=== PATIENT | male | born 1945 | race Caucasian/White ===

== ENCOUNTER 2016-07-22 14:40 | Emergency (ER) | payer MEDICARE, OTHER ==
[~2016-07-22] VITALS: Ht 177.8 cm; Wt 85.0 kg
[2016-07-22 14:51] VITALS: BP 141/86; PULSE 97; RESP 20; TEMP 98.4; O2SAT 94
[2016-07-22] MEDS ORDERED: ASPI81CH37 CHEW (15:11)
[2016-07-22] MEDS ORDERED: OMEP20TA PO (15:11)
[2016-07-22] MEDS ORDERED: methylPREDNISolone SOD SUCC 125 MG/2 ML VIAL IVP ONE (15:15)
[2016-07-22] MEDS ORDERED: SODIUM CHLORIDE 0.9% FLUSH 10 ML FLUSH IVF PRN (15:15)
--- NOTE | 2016-07-22 15:16 | PD ---
HPI Chief Complaint: Respiratory Symptoms Time Seen by Provider: 15:03 Travel History International Travel<30 days: No Contact w/Intl Traveler<30days: No Traveled to known affect area: No History of Present Illness HPI Patient is a 71-year-old male with approximately 60-90 pack years of smoking history but no previously documented COPD per his report here with complaint of shortness of breath. Patient states that he is chronically short of breath with a "smoker's cough" but has gotten worse over the Last couple of days with increasing chest congestion, wheezing, sputum production. He notes he short of breath with exertion and with lying flat. Denies any peripheral edema, history of heart failure. No associated chest pain. PFSH Past Medical History COPD: Yes Diminished Hearing: Yes GERD: Yes Immunizations Current: Yes Tetanus Vaccination: < 5 Years Influenza Vaccination: Yes ?: Not Past Surgical History Other Surgery: Yes (collapsed lung skin grafts leg) Social History Alcohol Use: Yes (6 pk week) Tobacco Use: Yes (1 pk) Substance Use: No Allergies-Medications (Allergen,Severity, Reaction): Coded Allergies: No Known Allergies (Unverified , 07/22/16) Reported Meds & Prescriptions Reported Meds & Active Scripts Active Ventolin Hfa 18 GM Inh (Albuterol Sulfate) 90 Mcg/Act Aer 2 Puff INH Q4H PRN Zithromax Z-Tony (Azithromycin) 250 Mg Dspk 250 Mg PO DIRECTED 500 MG (2 tabs) day 1, then 1 tab days 2-5. Prednisone 20 Mg Tab 40 Mg PO DAILY 5 Days Take 40 mg (2 tablets) daily for 5 days Reported Aspirin Low Dose (Aspirin) 81 Mg Chew 81 Mg CHEW DAILY Omeprazole 20 Mg Tab 20 Mg PO DAILY Review of Systems Except as stated in HPI: all other systems reviewed are Neg Physical Exam Narrative GENERAL: Elderly male in no acute distress SKIN: Focused skin assessment warm/dry. HEAD: Normocephalic. EYES: No scleral icterus. No injection or drainage. ENT: Mucous membranes pink and moist. NECK: Supple CARDIOVASCULAR: Regular rate and rhythm. No murmur appreciated. RESPIRATORY: No accessory muscle use. Expiratory wheezing throughout GASTROINTESTINAL: Abdomen soft, non-tender, nondistended. Obese MUSCULOSKELETAL: No obvious deformities. No edema. NEUROLOGICAL: Awake and alert. Motor grossly within normal limits. Normal speech. PSYCHIATRIC: Appropriate mood and affect; insight and judgment normal. Data Data Last Documented VS Vital Signs Date Time Temp Pulse Resp B/P Pulse Ox O2 Delivery O2 Flow Rate FiO2 07/22/16 15:25 95 21 07/22/16 15:20 20 Room Air 07/22/16 14:51 98.4 97 141/86 Orders Complete Blood Count With Diff (07/22/16 15:08) Basic Metabolic Panel (Bmp) (07/22/16 15:08) Iv Access Insert/Monitor (07/22/16 15:08) Electrocardiogram (07/22/16 15:08) Ecg Monitoring (07/22/16 15:08) Oximetry (07/22/16 15:08) Chest, Single Ap (07/22/16 15:08) Sodium Chloride 0.9% Flush (Ns Flush) (07/22/16 15:15) Methylprednisolone So Succ Inj (Solumedr (07/22/16 15:15) Albuterol-Ipratropium Neb (Duoneb Neb) (07/22/16 15:15) Labs Laboratory Tests Test 07/22/16 15:15 White Blood Count 8.1 TH/MM3 Red Blood Count 5.06 MIL/MM3 Hemoglobin 15.3 GM/DL Hematocrit 46.7 % Mean Corpuscular Volume 92.3 FL Mean Corpuscular Hemoglobin 30.3 PG Mean Corpuscular Hemoglobin 32.9 % Concent Red Cell Distribution Width 13.0 % Platelet Count 168 TH/MM3 Mean Platelet Volume 8.6 FL Neutrophils (%) (Auto) 81.4 % Lymphocytes (%) (Auto) 3.7 % Monocytes (%) (Auto) 12.4 % Eosinophils (%) (Auto) 0.8 % Basophils (%) (Auto) 1.7 % Neutrophils # (Auto) 6.6 TH/MM3 Lymphocytes # (Auto) 0.3 TH/MM3 Monocytes # (Auto) 1.0 TH/MM3 Eosinophils # (Auto) 0.1 TH/MM3 Basophils # (Auto) 0.1 TH/MM3 CBC Comment DIFF FINAL Differential Comment Sodium Level 141 MEQ/L Potassium Level 3.6 MEQ/L Chloride Level 102 MEQ/L Carbon Dioxide Level 28.7 MEQ/L Anion Gap 10 MEQ/L Blood Urea Nitrogen 10 MG/DL Creatinine 0.85 MG/DL Estimat Glomerular Filtration 89 ML/MIN Rate Random Glucose 102 MG/DL Calcium Level 8.4 MG/DL [facility] Medical Decision Making Medical Screen Exam Complete: Yes Emergency Medical Condition: Yes Medical Record Reviewed: Yes Differential Diagnosis 71-year-old male with 60-90 pack years of smoking with increase of his chronic cough, shortness of breath over the last several days with increasing sputum production, more shortness of breath on laying flat. Differential includes COPD , COPD exacerbation, CHF, pneumonia and less likely symptomatic anemia, electrolyte abnormality or arrhythmia, ACS. Narrative Course Patient placed on monitor, IV established and blood obtained. A twelve-lead EKG shows sinus rhythm. Q waves in V1 and V2 but no notable ST abnormalities and normal intervals. Portal chest x-ray obtained that by my read shows no acute abnormalities. Patient given 125 mg Solu-Medrol, DuoNeb 3. CBC, BMP unremarkable. Patient felt improved and will be discharged to home with steroids, antibiotics and MDI as needed. Diagnosis Primary Impression: COPD exacerbation Additional Impression: Tobacco abuse Referrals: Primary Care Physician as needed Patient Instructions: COPD (Chronic Obstructive Pulmonary Disease) (ED), General Instructions Additional Instructions: Finished steroids and antibiotics as prescribed. Albuterol as needed for cough , wheezing, shortness of breath. Quit smoking tobacco as discussed. Follow-up with primary care provider symptoms persist and return to the ER for the warning signs discussed. Med/Other Pt SpecificInfo: Prescription(s) given Scripts Albuterol 18 GM Inh (Ventolin Hfa 18 GM Inh)90 Mcg/Act Aer2 Puff INH Q4H PRN ( SHORTNESS OF BREATH) #1 INHALER Ref 0 Prov:Cassie Matthew MD 07/22/16 Azithromycin (Zithromax Z-Tony)250 Mg [id number] Mg PO DIRECTED #1 DSPK Ref 0 500 MG (2 tabs) day 1, then 1 tab days 2-5. Prov:Cassie Matthew MD 07/22/16 Prednisone 20 Mg Tab40 Mg PO DAILY 5 Days Ref 0 Take 40 mg (2 tablets) daily for 5 days Prov:Cassie Matthew MD 07/22/16 Disposition: 01 DISCHARGE HOME Condition: Stable Cassie Matthew MD Jul 22, 2016 15:16
[2016-07-22 15:20] VITALS: RESP 20; O2SAT 94
[2016-07-22] MEDS: RESP: ALBUTEROL 2.5 MG/IPRATROPIUM 0.5 MG NEB (SCH) INH ×2 (15:20→15:21)
[2016-07-22 15:23] LABS: AUTOMATED NEUTROPHIL # 6.6 TH/MM3 (1.8-7.7); BASOPHIL # 0.1 TH/MM3 (0-0.2); BASOPHIL % 1.7 % (0.0-2.0); EOSINOPHIL # 0.1 TH/MM3 (0-0.4); EOSINOPHIL % 0.8 % (0.0-4.0); HEMATOCRIT 46.7 % (39.0-51.0); LYMPH % 3.7 % (9.0-44.0); LYMPHOCYTE # 0.3 TH/MM3 (1.0-4.8); MEAN CELL VOLUME 92.3 FL (80.0-100.0); MEAN CORPUSCULAR HEMOGLOBIN 30.3 PG (27.0-34.0); MEAN CORPUSCULAR HGB CONC 32.9 % (32.0-36.0); MONO % 12.4 % (0.0-8.0); NEUT % 81.4 % (16.0-70.0); PLATELET COUNT 168 TH/MM3 (150-450); RED BLOOD COUNT 5.06 MIL/MM3 (4.50-5.90); WHITE BLOOD COUNT 8.1 TH/MM3 (4.0-11.0)
[2016-07-22 15:24] LABS: HEMO FLAGS DIFF FINAL
[2016-07-22 15:25] VITALS: O2SAT 95
[2016-07-22 15:33] LABS: POTASSIUM 3.6 MEQ/L (3.5-5.1)
[2016-07-22 15:36] LABS: BICARBONATE 28.7 MEQ/L (21.0-32.0)
[2016-07-22] MEDS ORDERED: VENTAER INH (15:36)
[2016-07-22] MEDS ORDERED: PRED20 PO (15:36)
[2016-07-22] MEDS ORDERED: ZITHTAB PO (15:36)
--- NOTE | 2016-07-22 15:43 | RADHPO ---
EXAM DATE/TIME: 07/22/2016 15:12 [facility] COMPARISON: No previous studies available for comparison. INDICATIONS : Shortness of breath for three days. MEDICAL HISTORY : Chronic obstructive pulmonary disease. SURGICAL HISTORY : None. ENCOUNTER: Initial ACUITY: 3 days PAIN SCORE: 4/10 LOCATION: Bilateral chest FINDINGS: There is underlying emphysema with bullous changes at especially at the right apex. Scattered parench ymal scarring present. No consolidation or effusion. Heart size normal. Atherosclerotic and tortuous aorta. CONCLUSION: 1. Bullous emphysema right lung apex. Scattered parenchymal scarring. No effusion. Henrik Drew MD on July 22, 2016 at 15:40 Board Certified Radiologist. This report was verified electronically.
[2016-07-22 15:59] VITALS: BP 162/79
--- NOTE | 2016-07-23 15:07 | EKG ---
Date Performed: 07/22/2016 Time Performed: 15:12:58 PTAGE: 71 years EKG: Sinus rhythm Poor initial anterior forces, possible normal variant. Abnormal ECG NO PREVIOUS TRACING DOCTOR: Kenny Mclean Interpretating Date/Time 07/23/2016 15:06:39
== END 2016-07-22 16:01 | disposition home or self-care (01) ==
LOC: PHED 14:40
DX: J44.1 Chronic obstructive pulmonary disease with (acute) exacerbation (principal); R94.31 Abnormal electrocardiogram [ECG] [EKG]; H91.90 Unspecified hearing loss, unspecified ear; F17.200 Nicotine dependence, unspecified, uncomplicated; Z87.09 Personal history of other diseases of the respiratory system; Z87.19 Personal history of other diseases of the digestive system
CPT/HCPCS: 71010; 80048; 85025; 93005; 94640; 94664; 96374; 99285; J2930